=== PATIENT | female | born 1960 | race American Indian/Alaskan Native ===

== ENCOUNTER 2017-10-24 14:42 | Outpatient (CLI) | payer BC ==
--- NOTE | 2017-10-24 16:41 | Mammography Report ---
BILATERAL DIGITAL SCREENING MAMMOGRAM with CAD : 10/24/17 14:42:00 CLINICAL: Routine screening. COMPARISON:08/22/15 and 08/07/15 and additional mammograms going back to 2012 FINDINGS: The breasts are heterogeneously dense, which may obscure small masses.A right upper asymmetry on the MLO view is unchanged compared to the last screening exam. No mass, architectural distortion or suspicious calcifications. IMPRESSION: No mammographic evidence of malignancy. BI-RADS CATEGORY: 2 -- Benign RECOMMENDATION: Routine mammographic screening in one year. COMMENT: Patient follow-up letters are generated by our [employer] application.
== END 2017-10-24 14:43 | disposition home or self-care (01) ==
LOC: MAMMO 14:42
PROVIDERS: ATTEND Obstetrics & Gynecology
DX: Z12.31 Encounter for screening mammogram for malignant neoplasm of breast (principal)
CPT/HCPCS: 77067

== ENCOUNTER 2018-12-03 14:06 | Outpatient (CLI) | payer BC ==
--- NOTE | 2018-12-04 09:20 | Mammography Report ---
BILATERAL DIGITAL SCREENING MAMMOGRAM with CAD: 12/03/18 14:06:00 CLINICAL: Routine screening. COMPARISON:10/24/17 FINDINGS: The breasts are heterogeneously dense, which may obscure small masses. No mass, architectural distortion or suspicious calcifications. IMPRESSION: No mammographic evidence of malignancy. BI-RADS CATEGORY: 1 - - Negative RECOMMENDATION: Routine mammographic screening in one year. COMMENT: Patient follow-up letters are generated by our [employer] application.
--- NOTE | 2018-12-22 13:01 | Mammography Report ---
BILATERAL DIGITAL SCREENING MAMMOGRAM with CAD: 12/03/18 14:06:00 CLINICAL: Routine screening. COMPARISON:10/24/17 FINDINGS: The breasts are heterogeneously dense, which may obscure small masses. No mass, architectural distortion or suspicious calcifications. IMPRESSION: No mammographic evidence of malignancy. BI-RADS CATEGORY: 1 - - Negative RECOMMENDATION: Routine mammographic screening in one year. COMMENT: Patient follow-up letters are generated by our [employer] application. Addendum #1 CORRECTED HEADER: BILATERAL DIGITAL SCREENING MAMMOGRAM with CAD and DIGITAL BREAST TOMOSYNTHESIS (DBT) : 12/03/18 15:00:00
== END 2018-12-03 14:07 | disposition home or self-care (01) ==
LOC: SPVWC 14:06
PROVIDERS: ATTEND Obstetrics & Gynecology
DX: Z12.31 Encounter for screening mammogram for malignant neoplasm of breast (principal)
CPT/HCPCS: 77063; 77067

== ENCOUNTER 2020-07-26 11:54 | Day surgery (SDC) | payer BC ==
[2020-07-26] MEDS ORDERED: MIDAZOLAM 2 MG/2 ML INJ IV NR (12:47)
[2020-07-26] MEDS ORDERED: LACTATED RINGERS 1,000 ML IV SCH (13:00)
[2020-07-26] MEDS ORDERED: ceFAZolin/STERILE WATER 2 GM/20 ML SYRINGE IV NR (13:00)
[2020-07-26] MEDS ORDERED: HYDROmorphone 1 MG/1 ML INJ IV PRN ×2 (13:10)
[2020-07-26] MEDS ORDERED: ONDANSETRON 4 MG/2 ML INJ IV PRN (13:10)
--- NOTE | 2020-07-26 13:11 | Anesthesia Day of Surgery ---
Anesthesia Day of Surgery - Day of Surgery Patient Examined: Yes Patient H&P Reviewed: Yes Patient is NPO: Yes
--- NOTE | 2020-07-26 13:12 | Anesthesia Consultation ---
Anesthesia Consult and Med Hx Date of service: 07/26/20 - Airway Anesthetic Teeth Evaluation: Chipped ROM Head & Neck: Adequate Mental/Hyoid Distance: Adequate Mallampati Class: Class II Intubation Access Assessment: Good - Pre-Operative Health Status ASA Pre-Surgery Classification: ASA2 Proposed Anesthetic Plan: General - Pulmonary Hx Smoking: No (+2FS) Hx Sleep Apnea: No (SANTI PRE SCREEN HIGH RISK) - Cardiovascular System Hx Hypertension: Yes (X AT LEAST 10 YRS) - Central Nervous System Hx Psychiatric Problems: No - Endocrine Hx Renal Disease: Yes (Stone) - Hematic Hx Anemia: No Hx Sickle Cell Disease: No - Other Systems Hx Cancer: No Hx Obesity: Yes
[2020-07-26] MEDS ORDERED: HYDROmorphone 1 MG/1 ML INJ ONE (13:36)
[2020-07-26] MEDS ORDERED: LIDOCAINE MPF (2%) 20 MG/1 ML VIAL 5 ML ONE (13:36)
[2020-07-26] MEDS ORDERED: propofoL 200 MG/20 ML VIAL IV ONE (13:36)
--- NOTE | 2020-07-26 13:48 | Post Operative Note ---
Date of procedure: 07/26/20 Pre-op diagnosis: ureteral // renal stones Findings: as above L Procedure: cysto ureterosopy lasr Anesthesia: RONNY Surgeon: STEVIE HENSLEY Estimated blood loss: minimal Pathology: none Condition: stable Disposition: PACU
--- NOTE | 2020-07-26 13:49 | Discharge Summary ---
Short Stay Discharge Plan Activity: other (no straining ) Weight Bearing Status: Full Weight Bearing Diet: low fat, low cholesterol, low salt Special Instructions: other (has stent ) Durable Medical Equipment Needed Upon Discharge: other (j stent ) Follow up with: LIBERTY GARRIDO MD [Primary Care Provider] - 7 Days STEVIE HENSLEY MD [Staff Physician] - 7 Days
[2020-07-26] MEDS ORDERED: ONDANSETRON 4 MG/2 ML INJ ONE (14:14)
[2020-07-26] MEDS ORDERED: WATER FOR IRRIG STERILE 2000 ML IR ONE (14:32)
[2020-07-26] MEDS ORDERED: WATER FOR IRRIG STERILE 1,500 ML BOTTLE IR ONE (14:32)
--- NOTE | 2020-07-26 14:52 | Post Anesthesia Evaluation ---
- Post Anesthesia Evaluation Patient Participated: Yes Airway Patent: Yes Stable Respiratory Function: Yes Nausea/Vomiting: No Temp > 96.8F: Yes Pain Manageable: Yes Adequeate Hydration: Yes Anesthesia Complications: No Block Receding Appropriately: Not Applicable Patient on Ventilator: No
--- NOTE | 2020-07-26 15:02 | Operative Report ---
PREOPERATIVE DIAGNOSES: Severe right flank pain, right distal ureteral stone. POSTOPERATIVE DIAGNOSES: Severe right flank pain, right distal ureteral stone. PROCEDURE: Cystoscopy, right retrograde, right stone extraction, ureteroscopy, J stent. SURGEON: Dr. Hallman. ANESTHESIA: General. FINDINGS: This is a woman with severe pain. She now presents for treatment. All risks and implications discussed. DESCRIPTION OF PROCEDURE: The patient was brought to the operating room and placed on the operating table. Following induction of anesthesia, placed in lithotomy position, prepped and draped in usual sterile fashion. We could see the edema and the stone at the orifice. A little dye was injected and stone was grasped. Ureteroscopy showed no other stones and just moderate edema. A double J coiled in the kidney. The patient tolerated the procedure well. We placed a stone in the front of the chart, brought to recovery room in stable condition. JOB# [id number] ANSLEY/ELLE
[2020-07-26 15:16] VITALS: BP 139/65
--- NOTE | 2020-07-26 15:57 | Fluoroscopy Report ---
INTRAOPERATIVE FLUOROSCOPY: RETROGRADE UROGRAPHY INDICATION: RT URETERAL STONE. TECHNIQUE: Intraoperative spot images were obtained during the procedure. FINDINGS: On the first 2 images, no contrast is seen. On the third image there is contrast within the distal tw o thirds of the right ureter. On the fourth and final image, double-J right ureteral stent projects i n expected position. Fluoroscopy Time: 24 seconds. Fluoroscopy Images: 4. Signer Name: Kulwinder Pimentel MD Signed: 07/26/2020 3:52 PM Workstation Name: [id number]
== END 2020-07-26 15:40 | disposition home or self-care (01) ==
LOC: OR 11:54
PROVIDERS: ATTEND Urology
DX: N13.2 Hydronephrosis with renal and ureteral calculous obstruction (principal); E66.9 Obesity, unspecified; Z90.710 Acquired absence of both cervix and uterus; Z79.899 Other long term (current) drug therapy; Z68.29 Body mass index [BMI] 29.0-29.9, adult; Z98.51 Tubal ligation status
CPT/HCPCS: 52320; 52332; 74420; A4217; C1758; C1769; C2617; J0690; J1170; J2250; J2405; J2704; J7120; Q9967

== ENCOUNTER 2021-08-15 09:10 | Outpatient (CLI) | payer BC ==
--- NOTE | 2021-08-16 12:22 | Mammography Report ---
DIGITAL SCREENING MAMMOGRAM WITH CAD, 08/15/2021 CLINICAL INFORMATION / INDICATION: Routine screening mammography. SCREENING MAMMOGRAM TECHNIQUE: Digital bilateral 2D mammography was obtained in the craniocaudal and mediolateral obliqu e projections. This examination was interpreted with the benefit of Computer-Aided Detection analysis . COMPARISON: 07/16/12 through 12/03/18. FINDINGS: Breast Density: The breasts are heterogeneously dense, which may obscure small masses. No dominant mass, suspicious calcifications, or architectural distortion in either breast. Asymmetric breast tissue on the right has not changed. IMPRESSION: No mammographic evidence of malignancy. Follow up recommendation: Routine yearly BI-RADS Category 2: Benign. A "normal" or negative report should not discourage follow up or biopsy of a clinically significant f inding. A written summary of these findings will be mailed to the patient. The patient will be entered into a mammography reporting system which will generate a reminder letter for the patient's next appointmen t at the appropriate interval. The [employer] recommends yearly mammograms starting at age 40 and continuing as l radha as a woman is in good health. Breast MRI is recommended for women with an approximate 20-25% or greater lifetime risk of breast cancer, including women with a strong family history of breast or ova donna cancer or who have been treated for Hodgkin's disease. Signer Name: Joe Orona MD Signed: 08/16/2021 12:17 PM Workstation Name: [id number]
== END 2021-08-15 09:11 | disposition home or self-care (01) ==
LOC: MAMMO 09:10
PROVIDERS: ATTEND Obstetrics & Gynecology
DX: Z12.31 Encounter for screening mammogram for malignant neoplasm of breast (principal)
CPT/HCPCS: 77067

== ENCOUNTER 2021-11-06 08:32 | Outpatient (CLI) | payer BC ==
--- NOTE | 2021-11-06 10:02 | Cat Scan Report ---
CT ABDOMEN WITHOUT CONTRAST INDICATION: CALCULUS OF KIDNEY N20.0 CONTRAST: Without IV COMPARISON: None available. All CT scans at this location are performed using CT dose reduction for ALARA by means of automated e xposure control. NOTE: Pelvis was not fully included as this was not requested. FINDINGS: Lung lu show mild chronic changes. Mild and slightly patchy increased interstitial bishop ings in the lower lobes bilaterally could be chronic though I cannot exclude mild interstitial edema. Small to moderate pericardial effusion is noted. No pneumoperitoneum is seen. The liver shows fatty infiltration and is enlarged with a length of 19.8 cm. No focal lesions are seen. I see no abnormalities of the spleen, gallbladder, bile ducts, pancre as, or adrenals. No lymphadenopathy is seen. No free fluid is noted. Appendix appears within normal l imits. No inflammatory changes are seen. No evidence of bowel obstruction is noted. Small fatty umbil ical hernia is seen. Arising from the posterior aspect of the left mid kidney is a 2.5 cm exophytic lesion with internal d ensity of 43 Hounsfield units which is indeterminate. No other renal cortical lesions are seen. Minim al right nephrolithiasis is seen with tiny punctate calculi in the mid and lower poles. In the left k idney a 2 mm calculus is seen in the lower pole. No obstructive changes are seen. Visualized portions of the ureters show no abnormalities. IMPRESSION: 1. Mild bilateral nephrolithiasis 2. Indeterminate left renal lesion. This could be a hyperdense cyst but I would suggest multiphase CT in further evaluation. 3 small to moderate pericardial effusion. Increased interstitial markings of the lung bases possibly could represent mild interstitial edema although this may be chronic change. Signer Name: Javier Colindres MD Signed: 11/06/2021 9:58 AM Workstation Name: [id number]
== END 2021-11-06 08:33 | disposition home or self-care (01) ==
LOC: CT 08:32
PROVIDERS: ATTEND Urology
DX: N20.0 Calculus of kidney (principal); K76.0 Fatty (change of) liver, not elsewhere classified; R16.0 Hepatomegaly, not elsewhere classified; I31.3 Pericardial effusion (noninflammatory); K42.9 Umbilical hernia without obstruction or gangrene
CPT/HCPCS: 74150